=== PATIENT | male | born 1955 | race Caucasian/White ===

== ENCOUNTER → 2022-05-03 13:35 | Outpatient (CLI) | payer OTHER, SELFPAY ==
[2022-05-03 14:01] LABS: COVID19 -Nasal RAPID Negative (Negative)
== END ==
PROVIDERS: Visit Provider Nurse Practitioner Critical Care Medicine
DX: Z20.822 Contact with and (suspected) exposure to COVID-19 (principal)
CPT/HCPCS: 87635